=== PATIENT | male | born 1950 | race Caucasian/White ===

== ENCOUNTER 2018-07-13 16:45 | Emergency (ER) | payer MEDICARE, MEDICAID ==
[~2018-07-13] VITALS: Ht 172.7 cm; Wt 81.6 kg
[2018-07-13] MEDS ORDERED: TRAV5DRO EACHEYE (17:00)
--- NOTE | 2018-07-13 17:24 | NUR ---
Pt resting in bed, awaiting to be seen by kwasi CHAPIN at the bedside.
--- NOTE | 2018-07-13 17:34 | NUR ---
Dr Thrasher at the bedside for MSE.
[2018-07-13 17:48] LABS: BASOPHILS % (AUTO) 0.4 % (0.0-2.0); EOSINOPHILS # (AUTO) 0.2 K/uL (0.0-0.7); EOSINOPHILS % (AUTO) 2.5 % (0.0-7.0); HEMATOCRIT 43.2 % (36.7-47.1); HEMOGLOBIN 14.9 g/dL (12.5-16.3); LYMPHOCYTES # (AUTO) 2.7 K/uL (20.0-40.0); LYMPHOCYTES % (AUTO) 38.9 % (20.5-51.5); MEAN CORPUSCULAR HEMOGLOBIN 29.5 uug (23.8-33.4); MEAN CORPUSCULAR HGB CONC 35 g/dL (32.5-36.3); MEAN CORPUSCULAR VOLUME 85.6 fL (73.0-96.2); MONOCYTES # (AUTO) 0.5 K/uL (2.0-10.0); MONOCYTES % (AUTO) 6.9 % (0.0-11.0); NEUTROPHILS # (AUTO) 3.5 K/uL (1.8-8.9); NEUTROPHILS % (AUTO) 51.3 % (38.5-71.5); PLATELET COUNT (AUTO) 193 K/uL (152-348); RED BLOOD CELL COUNT(AUTO) 5.05 MIL/uL (4.06-5.63); WHITE BLOOD COUNT (AUTO) 6.8 K/uL (3.6-10.2)
[2018-07-13 17:50] LABS: CREATININE 0.9 mg/dL (0.6-1.3); POTASSIUM 3.7 mmol/L (3.5-5.1)
--- NOTE | 2018-07-13 17:51 | NUR ---
IV removed. Catheter intact and site benign. Pressure and 4x4 gauze applied to site. No bleeding noted.
[2018-07-13 17:53] VITALS: BP 153/67
--- NOTE | 2018-07-13 17:57 | NUR ---
Patient discharged to home in stable conditon. Written and verbal after care instructions given. Patient verbalizes understanding of instructions.
[2018-07-13 18:02] LABS: BILIRUBIN,DIRECT 0.2 mg/dL (0.0-0.2); BILIRUBIN,TOTAL 1.1 mg/dL (0.2-1.0); TOTAL PROTEIN, SERUM 7.5 g/dL (6.4-8.2)
== END 2018-07-13 17:57 | disposition home or self-care (01) ==
LOC: ER 16:48
DX: G51.0 Bell's palsy (principal); Z79.899 Other long term (current) drug therapy
CPT/HCPCS: 36415; 70030-TC; 85025; 85730; 93005; A4663

== ENCOUNTER 2018-11-25 21:48 | Inpatient (IN) | payer MEDICARE, BC ==
[~2018-11-25] VITALS: Ht 182.9 cm; Wt 81.6 kg
[~2018-11-25 21:48] MED LIST: TRAV5DRO EACHEYE
[2018-11-25 22:21] LABS: BASOPHILS % (AUTO) 0.3 % (0.0-2.0); EOSINOPHILS # (AUTO) 0.1 K/uL (0.0-0.7); EOSINOPHILS % (AUTO) 0.9 % (0.0-7.0); HEMATOCRIT 42.7 % (36.7-47.1); HEMOGLOBIN 14.6 g/dL (12.5-16.3); LYMPHOCYTES % (AUTO) 37.7 % (20.5-51.5); MEAN CORPUSCULAR HEMOGLOBIN 29.5 uug (23.8-33.4); MEAN CORPUSCULAR HGB CONC 34 g/dL (32.5-36.3); MEAN CORPUSCULAR VOLUME 86.5 fL (73.0-96.2); MONOCYTES # (AUTO) 0.6 K/uL (2.0-10.0); MONOCYTES % (AUTO) 7.9 % (0.0-11.0); NEUTROPHILS # (AUTO) 4.3 K/uL (1.8-8.9); NEUTROPHILS % (AUTO) 53.2 % (38.5-71.5); PLATELET COUNT (AUTO) 189 K/uL (152-348); RED BLOOD CELL COUNT(AUTO) 4.94 MIL/uL (4.06-5.63)
[2018-11-25 22:31] LABS: CREATININE 0.8 mg/dL (0.6-1.3); POTASSIUM 3.9 mmol/L (3.5-5.1)
[2018-11-25] MEDS ORDERED: IV NORMAL SALINE 250 ML IV ONE (22:40)
[2018-11-25] MEDS ORDERED: IOHEXOL 350 100 ML INFUS..BTL ONE (22:40)
[2018-11-25] MEDS ORDERED: SWABABLE VALVE TRANSFER SET EA MC ONE (22:40)
[2018-11-25] MEDS ORDERED: IV NORMAL SALINE 1000 ML BAG IV ONE (22:45)
[2018-11-26] MEDS ORDERED: SIMV20TA6 PO (00:43)
[2018-11-26] MEDS: ASPIRIN EC 325 MG TABLET.DR PO SCH ×2 (00:53→09:00)
[2018-11-26] MEDS ORDERED: ASPIRIN EC 325 MG TABLET.DR PO ONE (00:55)
[2018-11-26 02:00] VITALS: BP 126/64
[2018-11-26] MEDS ORDERED: Z GUARD REMEDY PASTE 57 GM TUBE TOP PRN (03:15)
[2018-11-26] MEDS ORDERED: ACETAMINOPHEN 325 MG TABLET PO PRN (03:15)
[2018-11-26] MEDS ORDERED: HYDROCODONE/APAP 5-325MG TABLET PO PRN (03:15)
[2018-11-26] MEDS ORDERED: ONDANSETRON 4 MG/2 ML VIAL IV PRN (03:15)
[2018-11-26] MEDS: DIAZEPAM 5 MG TABLET PO PRN ×2 (03:40→12:12)
[2018-11-26 09:00] VITALS: BP 120/61
[2018-11-26 17:00] VITALS: BP 104/65
[2018-11-26] MEDS ORDERED: TRAVOPROST 0.004% OPHT DROP 2.5 ML BOTTLE EACHEYE SCH (21:00)
[2018-11-26] MEDS ORDERED: LATANOPROST OPHT DROP 2.5 ML BOTTLE EACHEYE SCH (21:00)
[2018-11-26] MEDS ORDERED: SIMVASTATIN 20 MG TABLET PO SCH (21:00)
== END 2018-11-26 19:35 | disposition home or self-care (01) | DRG 89 ==
LOC: ER 21:51 → TELE3 11-26 01:40
PROVIDERS: ADMIT Nurse Practitioner Acute Care; ATTEND Nurse Practitioner Acute Care
DX: S06.0X0A Concussion without loss of consciousness, initial encounter (principal); J98.11 Atelectasis; V43.52XA Car driver injured in collision with other type car in traffic accident, initial encounter; Y92.414 Local residential or business street as the place of occurrence of the external cause; E78.5 Hyperlipidemia, unspecified; H81.10 Benign paroxysmal vertigo, unspecified ear; R73.03 Prediabetes; I08.1 Rheumatic disorders of both mitral and tricuspid valves
CPT/HCPCS: 36415; 70030-TC; 70450; 70496; 71045; 85025; 85730; 93005; 93307; 97116; 97530; A4663; G0378; J7040; J7050; Q9967